=== PATIENT | female | born 1945 | race Caucasian/White ===

== ENCOUNTER 2016-10-18 18:09 | Inpatient (IN) | payer MEDICARE, OTHER ==
--- NOTE | ~2016-10-18 | CO ---
Unit #: [id number] #: [id number] Patient: RAY GARCIA [id number] [address] [place], [place] [address] [id number] MR#: [id number] NAME: RAY GARCIA. ROOM: 228 Age: 71 Sex: F Admission Date: 10/18/2016 : 1945 Attending Physician: Rick Lemus M.D. Primary Care Physician: Low Loving Jr., M.D. Consultation Date: 10/20/2016 CONSULTATION REPORT REASON FOR CONSULTATION Atrial fibrillation with slow ventricular response. HISTORY OF PRESENT ILLNESS This is a 71-year-old white female, who is known to Dr. Smith history of multiple myeloma, follows with Dr. Dill, pancytopenia, permanent atrial fibrillation, not on anticoagulation secondary to her pancytopenia, hypertension, diabetes, hyperlipidemia, has nonobstructive CAD, history of TIA, chronic pain syndrome, history of sacral wound, and she was recently discharged from a rehab due to having care for the decubitus. It has improved, but she still has the wound. According to the patient, she is alert and oriented. She has been home from the rehab for about 2 days. She said that she started developing pain, especially in her right shoulder and on the right side, she was with generalized weakness. She also had some right shoulder pain. She said as the pain was worsening and nothing seemed like it was helping on own medications and her pain pills, she came to the emergency room for further evaluation. She does have and came in a couple of days ago and started on gabapentin and told her to take some more Kathryn. Her VNA nurse examined her yesterday and encouraged her to come to the hospital for further evaluation and management. She reported the patient wants to go to a short-term facility. She denies any chest pain, pain in her neck, bilateral jaws, shoulders, arms, or elbow. She denies any palpitations. No dizziness, presyncope, or syncope. The patient was admitted for pain control and to evaluate for fpc placement. In the meantime, as mentioned, she does have permanent atrial fibrillation that did show in the telemetry, slow ventricular response and did indicate a 2.5 second pause, which was the longest pause noted. The patient upon questioning about the time of that pause, she believes she was sleeping. She said she did not have any unusual symptoms. Cardiology has been consulted to assist with evaluation and management. PAST MEDICAL HISTORY 1. 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 Dill. 2. History of pancytopenia. 3. Permanent atrial fibrillation, not on anticoagulation secondary to pancytopenia. 4. Hypertension. 5. Hyperlipidemia. 6. Diabetes mellitus type 2. 7. Cardiac cath back in 2005, showed a 50% to 60% stenosis in the proximal circumflex. Unit #: [id number] #: [id number] Patient: RAY GARCIA 8. In 2012, had a Lexiscan Cardiolite stress test, which showed a small area of possible stress-induced ischemia of inferior wall of the left ventricle, but not ruled out. Ejection fraction 60%. No focal wall motion abnormality. 9. History of right flank abscess, status post I and D in 2015. 10. Peripheral vascular disease with history of right coronary artery endarterectomy. 11. History of TIAs. 12. Chronic pain syndrome. 13. History of nonsustained ventricular tachycardia in 05/2015. 14. Reformed smoker. 15. Recently discontinued from rehab. 16. Sacral wound. PAST SURGICAL HISTORY 1. I and D of right flank abscess. 2. Left foot surgery. 3. Right carotid endarterectomy. 4. Right rotator cuff repair. 5. Tonsillectomy. 6. Debridement for sacral decubitus. HOME MEDICATIONS 1. Duragesic patch 75 mcg p.o. every 72 hours. 2. Zofran 4 mg p.o. every 8 hours p.r.n. 3. Lortab 10/325 one tablet p.o. every 4 hours p.r.n. 4. Lasix 20 mg p.o. daily. 5. Xanax 0.5 mg p.o. every 6 hours p.r.n. 6. Tylenol extra-strength 500 mg every 6 hours p.r.n. 7. Carafate 1 g p.o. twice daily. 8. Multivitamin one tablet p.o. daily. 9. Potassium chloride 20 mEq p.o. daily. 10. MiraLax 17 g p.o. at bedtime. 11. Lipitor 10 mg p.o. daily. 12. Zoloft 50 mg p.o. daily. 13. Reglan 5 mg p.o. twice daily. 14. Artificial Tears 15 mL to both eyes twice daily. 15. Oyster shell calcium plus vitamin D one tablet p.o. twice daily. 16. Xanax 0.5 mg p.o. every 8 hours. 17. Neurontin 200 mg p.o. every 8 hours. 18. Prilosec 20 mg p.o. twice daily. 19. Colace 100 mg p.o. daily. 20. Ferrex 150 mg Forte Plus capsule one tablet daily. ALLERGIES 1. Meperidine. 2. Penicillin. 3. Morphine. 4. Hydromorphone from Dilaudid. 5. Latex causes skin itching. SOCIAL HISTORY The patient just got out of rehab 2 days ago. She ambulates with a cane and a walker sometime. She is a reformed smoker. No alcohol or illicit drug abuse. FAMILY HISTORY Noted for lung cancer and polycythemia vera. Unit #: [id number] #: [id number] Patient: RAY GARCIA REVIEW OF SYSTEMS See details in HPI. PHYSICAL EXAMINATION GENERAL: Ms. Garcia is a 71-year-old white female, in no acute respiratory distress. She is awake, alert, and oriented. VITAL SIGNS: Blood pressure is 112/48, heart rate 58, respiratory rate 16, temperature 97.9, and O2 sats 92% on room air. NECK: Trachea midline. No thyromegaly or lymphadenopathy. Normal carotid upstrokes. No jugular venous distention. HEART: S1 and S2. Irregular regular rate and rhythm. No clicks, murmurs, or rubs. LUNGS: Diminished, otherwise clear. ABDOMEN: Obese, soft, and nontender. EXTREMITIES: Pedal pulses are palpable. Trace pedal edema. DIAGNOSTIC STUDIES LABORATORY RESULTS: Glucose is 128, BUN 18, creatinine 0.8, eGFR is 86.6, sodium 138, potassium 4.0, chloride 102, CO2 of 26, calcium is 8.3, magnesium is 1.7, total protein 7.5, albumin is 3.4, bilirubin total 1.0, AST 22, ALT 10, alkaline phosphatase of 69, amylase is 10, lipase is 13, TSH is 1.52. Initial cardiac enzymes; CK-MB is 1.1, with troponin of less than 0.05. WBC is 2.7, hemoglobin is 10.0, hematocrit 30.2, and platelets are 96. IMAGING STUDIES: X-ray of the lumbar spine showed T12 compression fracture with stable multilevel spondylolisthesis, no acute fracture. X-ray of right hip shows degenerative axial narrowing of the hip joints bilaterally, otherwise nothing acute. EKG shows atrial fibrillation with ventricular rate of 78 beats per minute, nonspecific ST-T wave abnormalities, T-waves in the septal leads. IMPRESSION 1. Generalized weakness. 2. Chronic pain syndrome. 3. History of multiple myeloma, follows Dr. Dill. 4. History of pancytopenia. 5. Permanent atrial fibrillation was noted, 2.56 second pause on telemetry. 6. Nonobstructive coronary artery disease, last cardiac cath in 2005 and stress test was back in 2012. 7. Right carotid endarterectomy. 8. History of transient ischemic attack. 9. Reformed smoker. 10. Sacral wound. PLAN 1. Cardiology consult to assist with evaluation and management of the patient's slowing of her atrial fibrillation. Looking over her records showing 2.56 second pause and it is not significant. The patient is asymptomatic, and her heart rate increases fairly quickly. We will decrease down the dose of atenolol from 50 mg daily to 25 mg once daily and monitor. 2. On exam, there are no signs or symptoms of cerebral angina, acute congestive heart failure. Cardiac enzymes are negative. EKG does not show anything acute. 3. The patient is being treated for her chronic issues and the plans are Unit #: [id number] #: [id number] Patient: RAY GARCIA to probably be discharged to a long-term nursing facility per her request. 4. Further recommendations pending per Dr. Smith. Thank you very much for allowing us to assist in her care. Dictated by... Blair Menchaca/doom TD: 10/21/2016 13:46 JOB #: [id number] CONSULTATION REPORT Page 1 of 1 X Jossie Wilson APRN CONSULTATION REPORT
--- NOTE | ~2016-10-18 | CR151 ---
[facility] A Service of [facility] & [facility] RADIOLOGY TEXT RESULTS PATIENT: RAY GARCIA LOCATION: [place] [address] : [birth year] UNIT #: [id number] AGE: [address]: Sly Bolton MD SEX: F ORDER DR: [id number] [facility] [address] [place], [place] [address] [id number] I MR#: [id number] #: [id number] NAME: RAY GARCIA. : 1945 SEX: F STUDY DATE/TIME: 10/18/2016 19:38 UNIT: CEDOF ROOM: 19155 STUDY DESCRIPTION: CR Hip Min 2 Views Rt Attending Physician: Brigitte Knowles M.D. Ordering Physician: Daniel Medrano M.D. Primary Care Physician: Low Loving Jr., M.D. MEDICAL IMAGING REPORT This report is preliminary unless electronic signature is present EXAM Right hip 2 views 10/18/2016 HISTORY Right hip pain beginning today. No known injury. FINDINGS 2 views of the pelvis and right hip demonstrate no fracture. There is mild degenerative axial narrowing of the hip joints bilaterally. The bones are somewhat osteopenic. There is no soft tissue abnormality. IMPRESSION Degenerative axial narrowing of the hip joints bilaterally. No acute abnormality. Dictated by... Williams Cruz M.D. THIS IS AN ELECTRONICALLY VERIFIED REPORT Williams Cruz M.D. at 10/19/2016 2:14 PM KRT/rnr TD: 10/18/2016 23:09 JOB #: [id number] MEDICAL IMAGING REPORT Page 1 of 1 COPY
--- NOTE | ~2016-10-18 | HP ---
Unit #: [id number] #: [id number] Patient: RAY GARCIA [id number] [address] [place], [place] [address] [id number] MR#: [id number] NAME: RAY GARCIA. ROOM: 553 Age: 71 Sex: F Admission Date: 10/18/2016 : 1945 Attending Physician: Sly Bolton M.D. Primary Care Physician: Low Loving Jr., M.D. HISTORY AND PHYSICAL CHIEF COMPLAINT Deconditioning, weakness, pain. DISCUSSION This is a 71-year-old female with history of advanced multiple myeloma, pancytopenia, history of chronic A fib, not on anticoagulation secondary to pancytopenia, hypertension, hyperlipidemia, peripheral vascular disease, history of coronary artery disease, diabetes, chronic pain secondary to multiple myeloma and history of sacral decubitus. She was at senior care rehab. She left 2 days ago. She went home. She was brought back to the emergency room secondary to pain. She is complaining of pain all over, right arm pain, shoulder pain, pain in the legs, and she said she is not able to take care of herself at home. Her family is available at bedside. Family said she needs, again, senior care placement. Eventually she has been admitted for pain control and for senior care placement. She denies chest pain. She denies nausea, vomiting, fever, cough or other complaints. PAST MEDICAL HISTORY 1. History of multiple myeloma/immunoglobulin A kappa monoclonal protein/plasmacytoma, followed by Dr. Dill. 2. History of pancytopenia. 3. History of chronic A fib, not on anticoagulation secondary to pancytopenia. 4. History of right flank abscess status post I and D. 5. History of hypertension. 6. Hyperlipidemia. 7. Peripheral vascular disease with previous right carotid endarterectomy. 8. TIA. 9. Coronary artery disease. 10. Diabetes. 11. History of chronic pain secondary to multiple myeloma. 12. History of sacral decubitus status post debridement. PAST SURGICAL HISTORY 1. Left foot surgery. 2. Right carotid endarterectomy. 3. Right rotator cuff repair. 4. Tonsillectomy. 5. I and D of buttocks and flank abscess. 6. History of debridement for sacral decubitus. SOCIAL HISTORY Unit #: [id number] #: [id number] Patient: RAY GARCIA She was living in a senior care. She just left 2 days ago to home. She lives at home currently for 2 days. She is a former smoker. No alcohol abuse. FAMILY HISTORY Notable for lung cancer, polycythemia vera. ALLERGIES Demerol, penicillin, morphine, Dilaudid, latex. MEDICATIONS FROM HOME 1. Atorvastatin. 2. Fentanyl. 3. Gabapentin. 4. Lasix. 5. [place]. 6. Prilosec. 7. Tylenol. 8. Xanax. 9. Zoloft. NOTE: She does not know the doses. Pharmacy is closed at this time. As per medication list.) REVIEW OF SYSTEMS A 12 review of systems is negative except as in history of present illness. PHYSICAL EXAMINATION GENERAL: Elderly female lying in bed comfortably, currently not in any distress. She is alert, awake, oriented x3. CURRENT VITALS: Temp is 98.5, heart rate 70, respirations 16, blood pressure 182/86, oxygen 94% on room air. HEENT: Pupils are equal and reactive to light and accommodation. Head is normocephalic and atraumatic. Extraocular muscles are intact. NECK: Neck is supple. Trachea midline. CARDIOVASCULAR: Regular. LUNGS: Clear to auscultation. No rhonchi. No wheezing. ABDOMEN: Abdomen is soft, nontender, nondistended. Bowel sounds are positive. EXTREMITIES: Inspection is normal. No cyanosis. No clubbing. No edema. NEUROLOGIC: No focal neurologic deficits. DIAGNOSTIC STUDIES LABORATORY WORKUP: Sodium 139, potassium 4.2, chloride 103, glucose 98, BUN 15, creatinine 0.5. LFTs within normal limits. Albumin 3.5. White count 2.7, hemoglobin 10, hematocrit 30, platelets 96. Troponin is 0.05. Glucose 97. ASSESSMENT 1. Deconditioning, weakness. She just left the senior care 2 days ago. Will admit the patient for senior care placement. Ask transit planner to evaluate. 2. Acute on chronic pain secondary to multiple myeloma. Will place on morphine on p.r.n. basis. Continue home medications. 3. History of multiple myeloma. 4. X-ray shows T12 compression fracture, which is old. 5. Chronic pancytopenia. Unit #: [id number] #: [id number] Patient: RAY GARCIA 6. Chronic A fib, not on anticoagulation secondary to pancytopenia. 7. Sacral decubitus, stage 3. 8. Hypertension. 9. Anxiety and depression. 10. History of pleural effusion status post thoracocentesis. 11. Dyslipidemia. 12. Peripheral vascular disease with previous right carotid endarterectomy. 13. Coronary artery disease. 14. History of TIA. 15. History of diabetes as per old record. PLAN Plan is to control pain with morphine. Admit inpatient for senior care placement. Dictated by Chaka Warner TD: 10/19/2016 08:50 JOB #: [id number] HISTORY AND PHYSICAL Page 1 of 1 X X HISTORY AND PHYSICAL
--- NOTE | ~2016-10-18 | DS ---
Unit #: [id number] #: [id number] Patient: RAY GARCIA [id number] [address] [place], [place] [address] [id number] I MR#: [id number] NAME: RAY GARCIA. ROOM: 228 Age: 71 Sex: F Admission Date: 10/18/2016 : 1945 Discharge Date: 10/21/2016 Attending Physician: Rick Lemus M.D. Primary Care Physician: Low Loving Jr., M.D. DISCHARGE SUMMARY ADMISSION DIAGNOSES 1. Intractable pain. 2. Multiple myeloma. 3. History of right flank abscess. HOSPITAL COURSE The patient is a 71-year-old female with a history of multiple myeloma who presented to [facility] emergency department with a complaint of intractable pain. States that the pain is in her right arm/shoulder and excruciating and prevents her from being able to perform her activities of daily living at home. She was admitted for pain control. While admitted, the patient was started on her home pain medications and IV morphine. At this time, her pain is well controlled. There is some question as to whether the patient was wearing her Duragesic patch which perhaps the patch was the wrong dose. The patient, herself, can be a poor historian at times. Regardless, the patient has been restarted on her 75 mcg fentanyl patch and hydrocodone with good effect. The patient is being discharged home to follow up with oncology as an outpatient for discussion of further treatment of her multiple myeloma. Treatment was stopped in February of last year due to a right flank abscess that required I and D. DISCHARGE MEDICATIONS 1. Tylenol 500 mg p.o. q.6 p.r.n. mild/moderate pain. 2. Neurontin 300 mg p.o. t.i.d. 3. Zoloft 50 mg daily. 4. Zofran 4 mg p.o. q.8 hours p.r.n. 5. Xanax 0.5 mg p.o. q.8 hours. 6. Colace 100 mg p.o. daily. 7. MiraLAX 17 grams p.o. q. h.s. 8. Artificial Tears as needed. 9. Lasix 20 mg as needed for swelling. 10. Lipitor 10 mg daily. 11. Ferrex 150 mg daily. 12. Reglan 5 mg p.o. b.i.d. 13. Carafate 1 g p.o. b.i.d. 14. Multivitamin daily. 15. Duragesic patch 75 mcg transdermally q.72 hours. 16. Enola 10/325, one p.o. q.4 hours p.r.n. breakthrough pain. 17. Prilosec 20 mg p.o. b.i.d. 18. Calcium daily. Unit #: [id number] #: [id number] Patient: RAY GARCIA 19. Potassium chloride 20 mEq daily. FOLLOWUP I have discussed oncology follow up with the patient. She states she will follow up with Dr. Dill this week but will require coordination with a ride prior to scheduling that appointment. Dictated by... Rick Lemus M.D. MARIAJOSE/pankaj TD: 10/22/2016 11:08 JOB #: [id number] DISCHARGE SUMMARY Page 1 of 1 X Rick Lemus MD X DISCHARGE SUMMARY
--- NOTE | ~2016-10-18 | EKG ---
PATIENT: RAY GARCIA UNIT #: [id number] Ventricular Rate: 63 BPM Atrial Rate: 357 BPM QRS Duration: 104 ms Q-T Interval: 426 ms QTC Calculation(Bezet): 435 ms Calculated R [place]: -37 degrees Calculated T [place]: -20 degrees Diagnosis Line: Atrial fibrillation Diagnosis Line: Left axis deviation Diagnosis Line: Nonspecific T wave abnormality , probably Diagnosis Line: digitalis effect Diagnosis Line: Abnormal ECG Diagnosis Line: No previous ECGs available Diagnosis Line: Confirmed by ERMA BREWER MD ([id number]) on Diagnosis Line: 10/21/2016 5:21:11 PM INTERPRETING MD: BOB
--- NOTE | ~2016-10-18 | CR181 ---
[facility] A Service of [facility] & [facility] RADIOLOGY TEXT RESULTS PATIENT: RAY GARCIA LOCATION: [place] [address] : [birth year] UNIT #: [id number] AGE: [address]: Sly Bolton MD SEX: F ORDER DR: [id number] [facility] [address] [place], [place] [address] [id number] MR#: [id number] Acc #: [id number] NAME: RAY GARCIA. : 1945 SEX: F STUDY DATE/TIME: 10/18/2016 19:33 UNIT: [facility] ROOM: 368[address] STUDY DESCRIPTION: CR Lumbar Spine 2 or 3 Views Attending Physician: Brigitte Knowles M.D. Ordering Physician: Daniel Medrano M.D. Primary Care Physician: Low Loving Jr., M.D. MEDICAL IMAGING REPORT This report is preliminary unless electronic signature is present EXAM Lumbar spine 10/18/2016 INDICATIONS Low back pain right hip pain that started today. Pain is severe. FINDINGS 3 views of the lumbar spine are compared with reformatted CT images from 12/18/2015. Note is made of extensive atherosclerotic disease. There is multilevel facet arthropathy. There is an old compression fracture and at T12. There is anterolisthesis of 3 on 4 and 4 on 5. No new fractures are seen. IMPRESSION Old T12 compression fracture with stable multilevel spondylolisthesis. There is fairly extensive facet arthropathy. No acute fracture. Dictated by... Javier Rivera Jr., M.D. THIS IS AN ELECTRONICALLY VERIFIED REPORT Javier Rivera Jr., M.D. at 10/19/2016 12:58 PM BRUNA/ednar TD: 10/18/2016 23:03 JOB #: [id number] MEDICAL IMAGING REPORT Page 1 of 1 COPY
--- NOTE | ~2016-10-18 | EKG ---
PATIENT: RAY GARCIA UNIT #: [id number] Ventricular Rate: 70 BPM Atrial Rate: 326 BPM QRS Duration: 102 ms Q-T Interval: 412 ms QTC Calculation(Bezet): 444 ms Calculated R Shirley: 9 degrees Calculated T Shirley: 7 degrees Diagnosis Line: Atrial fibrillation Diagnosis Line: Nonspecific ST and T wave abnormality Diagnosis Line: Abnormal ECG Diagnosis Line: When compared with ECG of 10-JAN-2016 16:05, Diagnosis Line: Criteria for Anteroseptal infarct are no longer Diagnosis Line: Present Diagnosis Line: Nonspecific T wave abnormality, worse in Anterior Diagnosis Line: leads Diagnosis Line: Nonspecific T wave abnormality no longer evident Diagnosis Line: in Lateral leads Diagnosis Line: Confirmed by DELL BIRMINGHAM MD ([id number]) on Diagnosis Line: 10/21/2016 3:15:42 PM INTERPRETING MD: VINNIE RAO
[~2016-10-18 18:09] MED LIST: ACIPHEX20 MG PO; ALDACTAZIDE PO; ASPIRIN PO; ASPIRIN81 M2 PO; ASPIRIN81 MG PO; ATENOLOL PO; ATENOLOL25 MG PO; ATENOLOL50 MG PO; AVANDIA PO; BUSPAR15 M1 DOB; CALAZIME P113 GM OI1 EXT; CALCIUM + VITAM1 TAB PO; CALCIUM 500 +1 EAC5 PO; CALTRATE 600+D PO; CALTRATE PLUS T1 TA1 PO; CARAFATE1 G PO; CARAFATE1 GM PO; CEPHALEXIN500 M1 PO; CERTAGEN PO; COLACE PO; CYMBALTA30 MG PO; DAKIN'S MODIF1000 ML EXT; DECADRON PO; DEXAMETHASONE PO; DEXAMETHASONE2 MG PO; DOC-Q-LACE100 MG PO; DURAGESIC1 EAC1 TD; DURAGESIC75 MCG EXT; FLEXERIL10 MG PO; FOLIC ACID PO; FUROSEMIDE40 MG PO; HCTZ PO; HYDRALAZINE HCL25 MG PO; HYDROCHLOROTHIA25 MG PO; HYDROCODONE/APA1 T16 PO; HYDROXYZINE HCL25 M1 PO; JANUMET 50-1,1 UDTAB PO; JANUMET XR 50-1 EAC1 PO; K-DUR20 ME1 PO; KCL PO; KEFLEX500 MG PO; LASIX20 MG PO; LEVAQUIN750 MG PO; LISINOPRIL PO; LORTAB 7.5-3251 EACH PO; LOW DOSE ASPIRI81 M1 PO; MAGNESIUM400 M1; MAGNESIUM400 M1 PO; METFORMIN PO; MILK OF MAGNESIA PO; MIRALAX17 GM PO; MULTI VITAMIN1 EACH PO; MULTI-DAY VITAM1 TAB PO; MULTIVITAMINS1 EAC1 PO; MULTIVITAMINS1 EAC2 PO; NEURONTIN100 MG PO; NITROFURANTOIN100 M3 PO; OMEPRAZOLE20 M2 PO; OTC STOOL SOFTENER; PATIENT'S PHARMACY; PATIENT'S PHARMACY PO; PERCOCET 7.5-31 EACH PO; PHENERGAN PO; PLENDIL PO; PLENDIL10 MG PO; PRILOSEC PO; PRILOSEC20 M1 PO; PRILOSEC20 MG PO; PRINIVIL40 MG PO; REVLIMID2.5 MG PO; REVLIMID25 MG PO; SIMVASTATIN20 MG PO; ST. JOSEPH ASPI81 M2 PO; STOOL SOFTENER100 M1 PO; TENORMIN50 MG PO; VICODIN ES 7.51 EAC1 PO; VITAMIN C100 MG PO; XANAX0.5 M1 PO; XANAX1 MG PO; ZESTRIL40 MG PO; ZOCOR PO; ZOCOR10 MG PO; ZOCOR20 MG PO; ZOFRAN PO; ZOMETA 4 M4 MG/100 M IV; [UNRECOGNIZED DRUG - OTHER] PO
[2016-10-18 19:49] LABS: BASOPHIL% 0.3 % (0-2.5); EOSINOPHIL% 0.2 % (0.0-7.0); HEMATOCRIT 30.2 % (35.0-45.0); LYMPHOCYTE# 0.5 X10e3 (1.0-3.5); MEAN CELL VOLUME 99.6 FL (83-96); MEAN CORPUSCULAR HGB CONC 33.2 g/dL (30-36); MONOCYTE# 0.4 X10e3 (0-1.0); MONOCYTE% 16.1 % (3.0-12.0); NEUTROPHIL# 1.7 X10e3 (1.5-7.1); NEUTROPHIL% 63.4 % (40-75); RED BLOOD COUNT 3.03 X10e (3.90-5.30); RED CELL DISTRIBUTION WIDTH 16.3 % (11.0-15.5); WHITE BLOOD COUNT 2.7 X10e3 (4.0-10.5)
[2016-10-18 19:52] LABS: POC - CKMB 1.1 ng/mL (0.0-7.9); POC - TROPONIN <0.05 ng/mL (<=0.05)
[2016-10-18 20:02] LABS: DIFF IND YES; PLATELET COUNT 96 X10e3 (140-420)
[2016-10-18 20:07] LABS: PLATELET ESTIMATE DECREASED (NORMAL); RBC NORMAL YES
[2016-10-18 20:11] LABS: ALBUMIN SERUM 3.4 g/dL (3.5-5.0); BILIRUBIN, DIRECT 0.3 mg/dL (0.0-0.2); BILIRUBIN,INDIRECT 0.7 mg/dL (0.0-0.9); CREATININE SERUM 0.5 mg/dL (0.6-1.4); GLOM FILT RATE Estimated 96.7 mL/min (>60); POTASSIUM 4.2 mmol/L (3.5-5.1); PROTEIN TOTAL SERUM 7.5 g/dL (6.0-8.3)
[2016-10-18] MEDS ORDERED: XANAX0.5 MG PO ×2 (22:40→22:48)
[2016-10-18] MEDS ORDERED: NEURONTIN PO (22:41)
[2016-10-18] MEDS ORDERED: DOCUSATE SODIU100 MG PO (22:41)
[2016-10-18] MEDS ORDERED: PRILOSEC PO (22:41)
[2016-10-18] MEDS ORDERED: ZOLOFT50 MG PO (22:42)
[2016-10-18] MEDS ORDERED: REGLAN5 MG PO (22:42)
[2016-10-18] MEDS ORDERED: ARTIFICIAL TEAR15 M9 OU (22:42)
[2016-10-18] MEDS ORDERED: FERREX 150 FOR1 EACH PO (22:42)
[2016-10-18] MEDS ORDERED: OYSTER SHELL C1 EAC3 PO (22:43)
[2016-10-18] MEDS ORDERED: CARAFATE1 GM PO (22:43)
[2016-10-18] MEDS ORDERED: POTASSIUM CHLO20 ME1 PO (22:45)
[2016-10-18] MEDS ORDERED: HAIR, SKIN & N1 EAC1 PO (22:45)
[2016-10-18] MEDS ORDERED: MIRALAX17 GM PO (22:46)
[2016-10-18] MEDS ORDERED: LIPITOR PO (22:46)
[2016-10-18] MEDS ORDERED: LORTAB 10-3251 EACH PO (22:47)
[2016-10-18] MEDS ORDERED: LASIX20 MG PO (22:48)
[2016-10-18] MEDS ORDERED: TYLENOL EXTRA500 M1 PO (22:49)
[2016-10-18] MEDS ORDERED: DURAGESIC1 EAC3 TD (22:50)
[2016-10-18] MEDS ORDERED: ZOFRAN PO (22:51)
[2016-10-18 23:11] LABS: BETA HYDROXYBUTYRATE 1.06 MMOL/L (0.02-0.27)
[2016-10-18 23:22] LABS: URINE SOURCE CLEAN CATCH
[2016-10-18 23:33] LABS: URINE APPEARANCE CLEAR; URINE BILIRUBIN NEG (NEG); URINE BLOOD NEG (NEG); URINE COLOR YELLOW; URINE GLUCOSE NEG (NEG); URINE KETONE TRACE (NEG); URINE LEUKOCYTE ESTERASE 1+ (NEG); URINE NITRATE NEG (NEG); URINE PH 7.5 (5-8); URINE PROTEIN TRACE (NEG); URINE SPECIFIC GRAVITY 1.014 (1.003-1.035)
[2016-10-18 23:35] LABS: CULTURE INDICATED? YES; U HYALINE CASTS AUWI 0-2 /[LPF]; URBCS1 AUWI 0-2 /[HPF] (0-2); URINE BACTERIA AUWI NEG (NEGATIVE); URINE SQUAMOUS EPITHELIAL CELL NONE SEEN /[HPF]
[2016-10-19 18:12] LABS: BUN/CREATININE RATIO 25.71; CALCIUM SERUM 8.3 mg/dL (8.4-10.2); CREATININE SERUM 0.7 mg/dL (0.6-1.4); GLOM FILT RATE Estimated 86.6 mL/min (>60); MAGNESIUM 1.7 mg/dL (1.6-3.0)
[2016-10-19 23:26] LABS: CK TOTAL 26 IU/L (26-140)
[2016-10-20 07:52] LABS: CK TOTAL 24 IU/L (26-140)
== END 2016-10-21 14:36 | disposition home or self-care (01) | DRG 840 ==
LOC: CED 18:09 → CEDOF 21:11 → C5B 23:51 → C2A 10-20 18:43
PROVIDERS: Emergency Medicine; Family Medicine
DX: C90.00 Multiple myeloma not having achieved remission (principal); L89.153 Pressure ulcer of sacral region, stage 3; D61.818 Other pancytopenia; E11.51 Type 2 diabetes mellitus with diabetic peripheral angiopathy without gangrene; I25.10 Atherosclerotic heart disease of native coronary artery without angina pectoris; I48.2 Chronic atrial fibrillation; E78.5 Hyperlipidemia, unspecified; I10 Essential (primary) hypertension; E11.9 Type 2 diabetes mellitus without complications; F41.9 Anxiety disorder, unspecified; F32.9 Major depressive disorder, single episode, unspecified; G89.4 Chronic pain syndrome; Z87.891 Personal history of nicotine dependence; Z88.0 Allergy status to penicillin; Z86.73 Personal history of transient ischemic attack (TIA), and cerebral infarction without residual deficits
CPT/HCPCS: 36415; 72100; 73502; 80048; 80076; 81003; 82010; 82150; 82550; 82553; 82947; 83036; 83690; 83735; 84443; 84484; 85025; 87086; 93005; 94760; 97116; 97161; 97166; 99285; G8978-GP; G8979-GP; G8987-GO; G8988-GO; G8989-GO; J2270; J2405; J3010

== ENCOUNTER 2016-12-11 11:29 | Emergency (ER) | payer MEDICARE, OTHER ==
[~2016-12-11] VITALS: Ht 170.2 cm; Wt 86.2 kg
[~2016-12-11 11:29] MED LIST changes: +ARTIFICIAL TEAR15 M9 OU; +DOCUSATE SODIU100 MG PO; +DURAGESIC1 EAC3 TD; +FERREX 150 FOR1 EACH PO; +HAIR, SKIN & N1 EAC1 PO; +LIPITOR PO; +LORTAB 10-3251 EACH PO; +NEURONTIN PO; +OYSTER SHELL C1 EAC3 PO; +POTASSIUM CHLO20 ME1 PO; +REGLAN5 MG PO; +TYLENOL EXTRA500 M1 PO; +XANAX0.5 MG PO; +ZOLOFT50 MG PO
== END 2016-12-11 12:22 | disposition home or self-care (01) ==
LOC: CED 11:29
DX: G89.29 Other chronic pain (principal); M79.601 Pain in right arm; Z88.0 Allergy status to penicillin; Z88.5 Allergy status to narcotic agent; Z88.8 Allergy status to other drugs, medicaments and biological substances; Z91.040 Latex allergy status
CPT/HCPCS: 99283

== ENCOUNTER 2017-01-21 21:36 | Emergency (ER) | payer MEDICARE, OTHER ==
--- NOTE | ~2017-01-21 | CR72 ---
[facility] A Service of [facility] RADIOLOGY TEXT RESULTS PATIENT: RAY GARCIA LOCATION: [facility] : [birth year] UNIT #: [id number] AGE: [address]: Baldomero Cerda MD SEX: F ORDER DR: [id number] [facility] [address] [place], [place] [address] [id number] MR#: [id number] Acc #: [id number] NAME: RAY GARCIA. : 1945 SEX: F STUDY DATE/TIME: 01/21/2017 22:14 UNIT: [facility] ROOM: STUDY DESCRIPTION: CR Chest Single View Portable Attending Physician: Baldomero Cerda M.D. Ordering Physician: Baldomero Cerda M.D. Primary Care Physician: Low Loving Jr., M.D. MEDICAL IMAGING REPORT This report is preliminary unless electronic signature is present EXAM AP portable chest. DATE 01/21/2017 at 2214. HISTORY Shortness of breath with activity and abdominal pain after falling today. COMPARISON AP portable chest, 02/12/2016. FINDINGS Peripheral airspace disease is demonstrated within the right costophrenic angle and within the left lower lobe. Stable cardiac enlargement. Questionable trace bilateral pleural effusions. Old right rib fractures. Surgical change of the right humeral head. IMPRESSION 1. Peripheral airspace disease within the left lower lobe and the right costophrenic angle. Correlate clinically for pneumonia. 2. Probable trace bilateral pleural effusions. 3. Stable cardiomegaly. 4. Old right rib fractures. Dictated by... Karlie Obando M.D. THIS IS AN ELECTRONICALLY VERIFIED REPORT Karlie Obando M.D. at 01/22/2017 12:29 PM [facility] A Service [facility] RADIOLOGY TEXT RESULTS PATIENT: RAY GARCIA LOCATION: [facility] : 43 UNIT #: [id number] AGE: [address]: Baldomero Cerda MD SEX: F ORDER DR: TD: 01/22/2017 00:00 JOB #: [id number] MEDICAL IMAGING REPORT Page 1 of 1 COPY
--- NOTE | ~2017-01-21 | CT2 ---
[facility] A Service of [facility] & [facility] [place] RADIOLOGY TEXT RESULTS PATIENT: RAY GARCIA LOCATION: [facility] : 43 UNIT #: [id number] AGE: [address]: Baldomero Cerda MD SEX: F ORDER DR: [id number] [facility] [address] [place], [place] [address] [id number] MR#: [id number] Acc #: [id number] NAME: RAY GARCIA. : 1945 SEX: F STUDY DATE/TIME: 01/21/2017 23:54 UNIT: [facility] ROOM: STUDY DESCRIPTION: CT Abd and Pelv W Cont Attending Physician: Baldomero Cerda M.D. Ordering Physician: Baldomero Cerda M.D. Primary Care Physician: Low Loving Jr., M.D. MEDICAL IMAGING REPORT This report is preliminary unless electronic signature is present EXAM CT abdomen and pelvis with IV contrast. HISTORY Left side pain today after a fall. TECHNIQUE CT abdomen and pelvis was performed with IV contrast. This CT exam was performed with one or more of the following radiation dose reduction techniques: automatic exposure control, adjustment of mA and/or kV according to patient size, and iterative reconstruction. FINDINGS CT ABDOMEN: Minimal subpleural atelectasis or scarring in both lung bases. Pneumobilia suggesting prior sphincterotomy. Multiple gallstones. No biliary dilatation or gallbladder distension. The liver, spleen, kidneys, and adrenal glands are normal. Generalized pancreatic parenchymal atrophy. Moderate multichamber cardiac enlargement. No bowel dilatation. No ascites. Normal caliber abdominal aorta. Multiple mixed lucent and sclerotic regions in the skeleton are slightly less conspicuous than on CT 12/18/2015. No new destructive skeletal lesion. CT PELVIS: The uterus and adnexa are unremarkable. No free fluid. Urinary bladder is normal. Multilevel degenerative changes in the lower thoracic and lumbar spine and chronic compression fracture of L1. IMPRESSION 1. No acute findings in the abdomen or pelvis. 2. Pneumobilia and gallstones are similar to CT 12/18/2015. 3. Multifocal areas of ill-defined lucency and sclerosis in the visualized skeleton are less conspicuous than on the prior CT. These could be secondary to treated metastatic disease. No new skeletal STS. [facility] A Service of [facility] RADIOLOGY TEXT RESULTS PATIENT: RAY GARCIA LOCATION: [facility] : 43 UNIT #: [id number] AGE: [address]: Baldomero Cerda MD SEX: F ORDER DR: lesions. 4. Moderate multichamber cardiac enlargement. Dictated by... Eugene Cruz M.D. THIS IS AN ELECTRONICALLY VERIFIED REPORT Eugene Cruz M.D. at 01/23/2017 4:10 AM KATHLEEN/lisa TD: 01/22/2017 01:15 JOB #: [id number] MEDICAL IMAGING REPORT Page 1 of 1 COPY
--- NOTE | ~2017-01-21 | EKG ---
PATIENT: RAY GARCIA UNIT #: [id number] Ventricular Rate: 65 BPM Atrial Rate: 150 BPM QRS Duration: 104 ms Q-T Interval: 416 ms QTC Calculation(Bezet): 432 ms Calculated R [place]: -6 degrees Calculated T [place]: 34 degrees Diagnosis Line: Atrial fibrillation Diagnosis Line: Abnormal ECG Diagnosis Line: No previous ECGs available Diagnosis Line: Confirmed by ERMA BREWER MD ([id number]) on Diagnosis Line: 01/23/2017 4:32:04 PM INTERPRETING : BOB
[2017-01-21 22:46] LABS: BASOPHIL% 0.2 % (0-2.5); HEMATOCRIT 22.2 % (35.0-45.0); HEMOGLOBIN 7.4 gm/dL (12.0-16.0); LYMPHOCYTE# 0.6 X10e3 (1.0-3.5); LYMPHOCYTE% 26.6 % (17.0-45.0); MEAN CELL VOLUME 102.9 FL (83-96); MEAN CORPUSCULAR HEMOGLOBIN 34.2 PG (28-34); MEAN CORPUSCULAR HGB CONC 33.2 g/dL (30-36); MEAN PLATELET VOLUME 7.9 FL (6.5-11.5); MONOCYTE# 0.4 X10e3 (0-1.0); MONOCYTE% 18.8 % (3.0-12.0); NEUTROPHIL# 1.1 X10e3 (1.5-7.1); NEUTROPHIL% 53.4 % (40-75); RED BLOOD COUNT 2.16 X10e (3.90-5.30); RED CELL DISTRIBUTION WIDTH 20.5 % (11.0-15.5); WHITE BLOOD COUNT 2.1 X10e3 (4.0-10.5)
[2017-01-21 23:02] LABS: DIFF IND YES; PLATELET COUNT 61 X10e3 (140-420)
[2017-01-21 23:05] LABS: NUCLEATED RED BLOOD CELL 1 /100 (0); PLATELET ESTIMATE DECREASED (NORMAL)
[2017-01-21 23:06] LABS: ALBUMIN SERUM 2.9 g/dL (3.5-5.0); BILIRUBIN,TOTAL 0.5 mg/dL (0.2-2.0); BUN/CREATININE RATIO 38.57; CALCIUM SERUM 9.3 mg/dL (8.4-10.2); CREATININE SERUM 0.7 mg/dL (0.6-1.4); GLOM FILT RATE Estimated 86.6 mL/min (>60); PROTEIN TOTAL SERUM 8.6 g/dL (6.0-8.3); ROULEAUX SLIGHT
== END 2017-01-22 05:48 | disposition home or self-care (01) ==
LOC: CED 21:36
PROVIDERS: Emergency Medicine
DX: S30.1XXA Contusion of abdominal wall, initial encounter (principal); D64.9 Anemia, unspecified; I25.10 Atherosclerotic heart disease of native coronary artery without angina pectoris; I10 Essential (primary) hypertension; W18.30XA Fall on same level, unspecified, initial encounter; Y92.9 Unspecified place or not applicable
CPT/HCPCS: 36415; 71010; 74177; 80053; 82150; 83690; 85025; 93005; 96374; 99285; J3010; Q9967